=== PATIENT | male | born 1980 | race Caucasian/White ===

== ENCOUNTER 2016-07-21 17:57 | Emergency (ER) | payer MEDICAID, OTHER ==
[2016-07-21 18:04] VITALS: BP 139/78
--- NOTE | 2016-07-21 18:15 | UC ---
Lower Extremity/Ankle HPI - HPI Summary HPI Summary: twisted left ankle three weeks ago has continued pain and swelling - History of Current Complaint Chief Complaint: UCLowerExtremity Stated Complaint: ANKLE INJURY Time Seen by Provider: 07/21/16 18:14 Hx Obtained From: Patient Onset/Duration: Sudden Onset, Lasting Weeks - 3, Still Present Severity Initially: Moderate Severity Currently: Moderate Pain Intensity: 6 Pain Scale Used: 0-10 Numeric Aggravating Factor(s): Standing, Ambulation Alleviating Factor(s): Rest, Elevation Able to Bear Weight: Yes - Allergies/Home Medications Allergies/Adverse Reactions: Allergies Allergy/AdvReac Type Severity Reaction Status Date / Time Uncaria Tomentosa (Cats Claw) Allergy Intermediate Runny Nose Verified 09/15/12 12:41 Home Medications: Home Medications Ibuprofen [Advil] 800 mg PO ONCE 07/21/16 [History Confirmed 07/21/16] PMH/Surg Hx/FS Hx/Imm Hx Previously Healthy: No Respiratory History: Asthma - Surgical History Surgical History: Yes Surgery Procedure, Year, and Place: Bilateral knee surgery, torn meniscus, and bone fragments. 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 Lives: With Family Alcohol Use: Daily Substance Use Type: None Smoking Status (MU): Never Smoked Tobacco Review of Systems Constitutional: Negative Skin: Negative Eyes: Negative ENT: Negative Respiratory: Negative Cardiovascular: Negative Gastrointestinal: Negative Genitourinary: Negative Motor: Negative Neurovascular: Negative Musculoskeletal: Arthralgia - lateral left ankle pain Neurological: Negative Psychological: Negative All Other Systems Reviewed And Are Negative: Yes Physical Exam Triage Information Reviewed: Yes Appearance: Well-Appearing, No Pain Distress, Obese Vital Signs: Initial Vital Signs Temp 97.6 F 07/21/16 18:01 Pulse 80 07/21/16 18:01 Resp 18 07/21/16 18:01 BP 139/78 07/21/16 18:01 Pulse Ox 96 07/21/16 18:01 Vital Signs Reviewed: Yes Eye Exam: Normal Eyes: Positive: Conjunctiva Clear ENT Exam: Normal ENT: Positive: Normal ENT inspection, Hearing grossly normal. Negative: Nasal congestion, Nasal drainage, Trismus, Muffled/hoarse voice Dental Exam: Normal Neck exam: Normal Neck: Positive: Supple, Nontender Respiratory Exam: Normal Respiratory: Positive: Chest non-tender, Lungs clear, Normal breath sounds, No respiratory distress, No accessory muscle use Cardiovascular Exam: Normal Cardiovascular: Positive: RRR, No Murmur, Pulses Normal, Brisk Capillary Refill Musculoskeletal Exam: Normal Musculoskeletal: Positive: Strength Intact, ROM Intact, Edema @ - left lateral pain Neurological Exam: Normal Neurological: Positive: Alert, Muscle Tone Normal Psychological Exam: Normal Psychological: Positive: Normal Response To Family, Age Appropriate Behavior Skin Exam: Normal Diagnostics - Radiology No standard instances Xray Interpretation: No Acute Changes Radiology Interpretation Completed By: Radiologist Lower Extremity Course/Dx - Course Course Of Treatment: rice, prashanth, gel, ibuprofen, follow with ortho 1 week - Differential Dx/Diagnosis Differential Diagnosis/HQI/PQRI: Contusion, Fracture (Closed), Sprain, Strain Provider Diagnoses: left ankle sprain Discharge - Discharge Plan Condition: Stable Disposition: HOME Patient Education Materials: Ankle Sprain (ED), Ankle Stirrup Splint (ED), RICE Therapy (ED), Ibuprofen (By mouth) Referrals: No Primary Care Phys,NOPCP [Primary Care Provider] - Maxwell Bland MD [Medical Doctor] - 5 Days
--- NOTE | 2016-07-21 18:49 | RAD ---
INDICATION: Left ankle injury. TECHNIQUE: 3 views of the left ankle were obtained. FINDINGS: There is diffuse soft tissue swelling. The bones are in normal alignment. No fracture is seen. Joint spaces appear maintained. IMPRESSION: SOFT TISSUE SWELLING, NO FRACTURE IS SEEN.
== END 2016-07-21 19:05 | disposition home or self-care (01) ==
LOC: UCEAST 17:57
DX: S93.402A Sprain of unspecified ligament of left ankle, initial encounter (principal); X50.1XXA Overexertion from prolonged static or awkward postures, initial encounter; J45.909 Unspecified asthma, uncomplicated
CPT/HCPCS: 99211; G0463

== ENCOUNTER 2017-10-08 10:28 | Emergency (ER) | payer OTHER ==
[2017-10-08 10:57] VITALS: BP 145/91
[2017-10-08] MEDS ORDERED: Lidocaine 2% VISCOUS* 15 ML UDC SWISH SPIT ONE (11:11)
--- NOTE | 2017-10-08 11:11 | UC ---
Dental HPI - HPI Summary HPI Summary: 36 y/o male presents to the urgent c/o left lower jaw toothache w/ swelling since yesterday. Pt reports he has a fracture molar w/swelling and redness around molar. Pain is 3/10 when eating. Pt has not taking any medications to alleviate symptoms. Pt denies fever, trismus, SOB, URI, chest pain, abdominal pain, N/V/D. Pt has a Dentist , but haven't been able to make an soon appt. - History of Current Complaint Chief Complaint: UCDentalProblem Stated Complaint: DENTAL PAIN Time Seen by Provider: 10/08/17 10:54 Hx Obtained From: Patient Onset/Duration: Gradual Onset, Lasting Days - 1 day, Still Present, Worse Since - today Severity: Moderate Pain Intensity: 3 Pain Scale Used: 0-10 Numeric Aggravating Factor(s): Chewing, Other - eating - Allergies/Home Medications Allergies/Adverse Reactions: Allergies Allergy/AdvReac Type Severity Reaction Status Date / Time pet dander Allergy Runny Nose Uncoded 10/08/17 10:58 PMH/Surg Hx/FS Hx/Imm Hx Previously Healthy: Yes Respiratory History: Asthma - Surgical History Surgical History: Yes Surgery Procedure, Year, and Place: Bilateral knee surgery, torn meniscus, and bone fragments. - Family History Known Family History: Positive: Cardiac Disease - Social History Occupation: Employed Full-time Lives: With Family Alcohol Use: Daily Substance Use Type: None Smoking Status (MU): Never Smoked Tobacco Review of Systems Constitutional: Negative Skin: Negative Eyes: Negative ENT: Dental Pain - left lower jaw pain w/ swelling and redness Respiratory: Negative Cardiovascular: Negative Gastrointestinal: Negative Genitourinary: Negative Motor: Negative Neurovascular: Negative Musculoskeletal: Negative Neurological: Negative Psychological: Negative Is Patient Immunocompromised?: No All Other Systems Reviewed And Are Negative: Yes Physical Exam - Summary Physical Exam Summary: Vital Signs Reviewed: Yes General: Well-Appearing, No Pain Distress, Well-Nourished obese male Eyes: Positive: Conjunctiva Clear - PERRLA, EOMI, ENT: Positive: Normal ENT inspection, Hearing grossly normal, Pharynx normal, TMs normal - B/L external ear canals clear,. Negative: Tonsillar swelling, Tonsillar exudate, Trismus Dental: Positive: Gross Decay/Caries w/ fracture molars #19 and 20 , Abscess @ - gingival swelling and erythema, tender to percussion around same molars, B/L anterior Cervical Lymphadenopathy palpated. Neck: Positive: Supple Respiratory: Positive: Chest non-tender, Lungs clear, Normal breath sounds, No respiratory distress Cardiovascular: Positive: RRR, No Murmur, Pulses Normal, Brisk Capillary Refill Abdomen Description: Positive: Nontender, No Organomegaly, Soft. Negative: CVA Tenderness (R), CVA Tenderness (L) Bowel Sounds: Positive: Present Musculoskeletal: Positive: Strength Intact, ROM Intact, No Edema Neurological Exam: Normal Psychological Exam: Normal Skin Exam: Normal Triage Information Reviewed: Yes Vital Signs: Initial Vital Signs Temp 97.6 F 10/08/17 10:42 Pulse 65 10/08/17 10:42 Resp 16 10/08/17 10:42 BP 145/91 10/08/17 10:42 Pulse Ox 97 10/08/17 10:42 Dental Complaint Course/Dx - Course Course Of Treatment: 36 y/o male presents to the urgent c/o left lower jaw toothache w/ swelling since yesterday. Pt reports he has a fracture molar w/ swelling and redness around molar. Pain is 3/10 when eating. Pt has not taking any medications to alleviate symptoms. Pt denies fever, trismus, SOB, URI, chest pain, abdominal pain, N/V/D. Pt has a Dentist , but haven't been able to make an soon appt. Hx obtained. Pt w/ a fracture moldar and mild sorrounding dental abscess on molar 19 and 20 on examination. Pt given viscous Lidocaine at the clinic to alleviate symptoms. Pt Rx Amoxicillin PO and Ibuprofen PO for pain. Pt strongly advised to f/u with Dentist as soon as possible further evaluation and treatment. Pt's BP is elevated today advised to decrease salt in diet, monitor BP and f/u with PCP for further management. D/c instructions explained. Pt understood and agreed with plan of care. Left the clinic ambulating. - Differential Dx/Diagnosis Differential Diagnosis/Dx: Dental Abscess, Dental Caries, Odontogenic Pain, Peridontic Disease, Peritonsillar Abcess Provider Diagnoses: 1- Acute dental abscess aroun molar 19 and 20. 2- Elevated BP w/o Hx of HTN Discharge - Sign-Out/Discharge Documenting (check all that apply): Patient Departure All imaging exams completed and their final reports reviewed: No Studies - Discharge Plan Condition: Stable Disposition: HOME Prescriptions: Amoxicillin PO (*) [Amoxicillin 500 MG CAP*] 500 mg PO Q12H #20 cap Ibuprofen TAB* [Motrin TAB* 800 MG] 800 mg PO Q6H PRN #30 tab PRN Reason: Pain Patient Education Materials: Dental Abscess (ED), Low-Sodium Diet (ED) Referrals: [facility] [place] [facility] [Outside] - 3 Days Additional Instructions: 1-Please take full course of antibiotic to avoid resistance. Take Yogurt w/ probiotics or Culturelle to protect your GI system 2- Take Ibuprofen PO q6-8hra prn after meals as instructed after meals to alleviate pain and swelling. 3- F/u with your Dentist or Dental List provided as soon as possible for further treatment. 4- If symptoms do not improve or worsen please return to the urgent care or f/u with your PCP 3 days for further evaluation and treatment 5-Your BP is elevated today. please decrease salt in your diet, monitor BP and if it continues to be elevated please f/u with your PCP for further management - Billing Disposition and Condition Condition: STABLE Disposition: Home
== END 2017-10-08 11:25 | disposition home or self-care (01) ==
LOC: UCEAST 10:28
DX: Z91.09 Other allergy status, other than to drugs and biological substances (principal); J45.909 Unspecified asthma, uncomplicated; K04.7 Periapical abscess without sinus; R03.0 Elevated blood-pressure reading, without diagnosis of hypertension
CPT/HCPCS: 99212; G0463

== ENCOUNTER 2018-06-13 07:06 | Emergency (ER) | payer OTHER ==
[2018-06-13 07:15] VITALS: BP 144/88
--- NOTE | 2018-06-13 07:26 | UC ---
Throat Pain/Nasal Zoltan HPI - HPI Summary HPI Summary: 37-year-old male comes to clinic with a chief complaint of sore throat 2 days. Hurts worse when he swallows. His daughter has a diagnosis of strep pharyngitis. No recent fevers no complaint of runny nose or ear pain or shortness of breath. He did try some Tylenol which helped a little bit with the pain.. - History of Current Complaint Chief Complaint: UCRespiratory Stated Complaint: SORE THROAT Time Seen by Provider: 06/13/18 07:18 Pain Intensity: 5 - Allergies/Home Medications Allergies/Adverse Reactions: Allergies Allergy/AdvReac Type Severity Reaction Status Date / Time pet dander Allergy Runny Nose Uncoded 06/13/18 07:15 PMH/Surg Hx/FS Hx/Imm Hx Previously Healthy: Yes Respiratory History: Asthma - Surgical History Surgical History: Yes Surgery Procedure, Year, and Place: Bilateral knee surgery, torn meniscus, and bone fragments. - Family History Known Family History: Positive: Cardiac Disease - Social History Alcohol Use: Daily Substance Use Type: None Smoking Status (MU): Never Smoked Tobacco Review of Systems All Other Systems Reviewed And Are Negative: Yes Constitutional: Positive: Negative Skin: Positive: Negative Eyes: Positive: Negative ENT: Positive: Sore Throat Respiratory: Positive: Negative Cardiovascular: Positive: Negative Gastrointestinal: Positive: Negative Motor: Positive: Negative Neurovascular: Positive: Negative Musculoskeletal: Positive: Negative Neurological: Positive: Negative Psychological: Positive: Negative Is Patient Immunocompromised?: No Physical Exam Triage Information Reviewed: Yes Appearance: No Pain Distress, Well-Nourished, Ill-Appearing - MILD Vital Signs: Initial Vital Signs Temp 97.8 F 06/13/18 07:11 Pulse 78 06/13/18 07:11 Resp 16 06/13/18 07:11 BP 144/88 06/13/18 07:11 Pulse Ox 97 06/13/18 07:11 Vital Signs Reviewed: Yes Eye Exam: Normal Eyes: Positive: Conjunctiva Clear ENT: Positive: Pharyngeal erythema, TMs normal Neck exam: Normal Neck: Positive: Supple Respiratory: Positive: Lungs clear, Normal breath sounds, No respiratory distress Cardiovascular: Positive: RRR Musculoskeletal Exam: Normal Musculoskeletal: Positive: Strength Intact, ROM Intact Neurological Exam: Normal Neurological: Positive: Alert Psychological Exam: Normal Psychological: Positive: Age Appropriate Behavior Skin Exam: Normal Throat Pain/Nasal Course/Dx - Course Course Of Treatment: DISCUSSED VIRAL VERSES BACTERIAL INFECTION AND THE ROLE OF ANTIBIOTICS. THE PATIENT PREFERS TO BE ON ANTIBIOTICS AT THIS TIME. - Differential Dx/Diagnosis Provider Diagnosis: Pharyngitis Discharge - Sign-Out/Discharge Documenting (check all that apply): Patient Departure All imaging exams completed and their final reports reviewed: No Studies - Discharge Plan Condition: Stable Disposition: HOME Prescriptions: Amoxicillin PO (*) [Amoxicillin 875 MG (*)] 875 mg PO BID #20 tab Patient Education Materials: Pharyngitis (ED) Forms: *Work Release Referrals: [facility] [place] [facility] [Outside] Additional Instructions: FOLLOW UP WITH YOUR DOCTOR IF NOT COMPLETELY IMPROVED. GET REEVALUATED SOONER IF YOUR CONDITION WORSENS OR ANY QUESTIONS OR CONCERNS. - Billing Disposition and Condition Condition: STABLE Disposition: Home
== END 2018-06-13 07:29 | disposition home or self-care (01) ==
LOC: UCEAST 07:06
DX: J02.9 Acute pharyngitis, unspecified (principal); J45.909 Unspecified asthma, uncomplicated
CPT/HCPCS: 99212; G0463

== ENCOUNTER 2019-03-25 13:30 | Emergency (ER) | payer OTHER ==
[2019-03-25 14:16] VITALS: BP 159/97
--- NOTE | 2019-03-25 14:37 | UC ---
Respiratory Complaint HPI - HPI Summary HPI Summary: PT presents to reporting 5 days of progressive cough with now green sputum. No SOB + wheeze - using old inhaler with improvement. No fever, chills, rash. 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, no tobacco, no vape not immunocompromised Pt's medications as entered in the EMR by consulting systems engineer reviewed this visit - History of Current Complaint Chief Complaint: UCGeneralIllness Stated Complaint: COUGH Time Seen by Provider: 03/25/19 14:32 Hx Obtained From: Patient Severity Currently: None Pain Intensity: 0 Pain Scale Used: 0-10 Numeric Character: Cough: Productive - green sputum - Allergies/Home Medications Allergies/Adverse Reactions: Allergies Allergy/AdvReac Type Severity Reaction Status Date / Time pet dander Allergy Runny Nose Uncoded 03/25/19 14:17 PMH/Surg Hx/FS Hx/Imm Hx Previously Healthy: Yes - Surgical History Surgical History: Yes Surgery Procedure, Year, and Place: Bilateral knee surgery, torn meniscus, and bone fragments. - Family History Known Family History: Positive: Cardiac Disease, Non-Contributory - Social History Occupation: Employed Full-time Lives: With Family Alcohol Use: Daily Substance Use Type: None Smoking Status (MU): Never Smoked Tobacco Review of Systems All Other Systems Reviewed And Are Negative: Yes Constitutional: Positive: Fatigue Eyes: Positive: Negative ENT: Positive: Negative Respiratory: Positive: Cough Cardiovascular: Positive: Negative Gastrointestinal: Positive: Negative Genitourinary: Positive: Negative Physical Exam - Summary Physical Exam Summary: Vital Signs Reviewed: Yes A+Ox3, no distress, mild intermittent cough Eyes: Conjunctiva Clear, MLA. EOM intact and full Neck: Positive: Supple, No LA ENT: Hearing grossly normal TM x 2 clear, mmoist, uvula midline, no exudate, mild erythema Respiratory: Positive: no resp distress, no accessory muscle use + intermittent cough scattered wheeze, increased right base, expiratory Cardiovascular: RRR nl s1, s2 no m/r CBT <2 sec abd soft obese + BS Musculoskeletal Exam: LU x 4 without difficulty Strength Intact, ROM Intact Neurological: Positive: Alert, + sensation throughout Psychological: Positive: Normal Response To assistant property manager Skin: Positive: no rash, no ecchymosis Triage Information Reviewed: Yes Vital Signs: Initial Vital Signs Temp 99.4 F 03/25/19 14:13 Pulse 102 03/25/19 14:13 Resp 18 03/25/19 14:13 BP 159/97 03/25/19 14:13 Pulse Ox 96 03/25/19 14:13 Respiratory Course/Dx - Course Course Of Treatment: Patient's a 38-year-old gentleman presents to urgent care reporting 5 days of progressive cough congestion in his chest with green sputum. No fevers chills. No shortness of breath. 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 Patient without any body aches had congestion postnasal drip. On exam vital signs are stable. Patient is well-appearing with a course of cough. Patient does scattered diffuse wheezes. Discussed with patient concern for increasing recently . Recommend patient have a chest x-ray. Patient declined at this time. We'll treat with antibiotics and MDI. Strict return precautions reviewed. Patient states any agreement with plan. Patient given work note for today and tomorrow. Patient also given physician referral information. - Differential Dx/Diagnosis Provider Diagnosis: Acute bronchitis Discharge ED - Sign-Out/Discharge Documenting (check all that apply): Patient Departure All imaging exams completed and their final reports reviewed: No Studies - Discharge Plan Condition: Stable Disposition: HOME Prescriptions: Albuterol HFA INHALER* [Ventolin HFA Inhaler*] 2 puff INH Q4H PRN #1 mdi PRN Reason: wheeze Amoxicillin/Clavulanate TAB* [Augmentin TAB 875*] 875 mg PO BID #20 tab Patient Education Materials: Acute Bronchitis (ED) Forms: *Gen. Provider Communication, *Work Release Referrals: [facility] [place] [facility] [Outside] No Primary Care Phys,NOPCP [Primary Care Provider] - Additional Instructions: - Take antibiotics exactly as prescribed until gone - Use your albuterol puffer - 2 puffs every 4 hours for the next 2 days - then as needed - Stay well hydrated - avoid excess caffeine and all alcohol - Eat regular, healthy meals - Humidify the air in the room where you sleep - boil water, run a hot steam shower, vaporizer, cups of water by heat register - Okay to take over the counter decongestant and cough medication - These infections are spread by secretions - do NOT share eating or drinking utensils - clean items you share with other people such as cell phones, computer mouse, TV remote, computer tablets,etc.. Once you have been antibiotics for 2 days, change your toothbrush and your pillowcase. -Contact your doctor to arrange a follow-up appointment this week if your symptoms worsen of you have any other questions or concerns - Billing Disposition and Condition Condition: STABLE Disposition: Home
== END 2019-03-25 15:02 | disposition home or self-care (01) ==
LOC: UCEAST 13:30
DX: J20.9 Acute bronchitis, unspecified (principal); Z91.09 Other allergy status, other than to drugs and biological substances
CPT/HCPCS: 99212; G0463

== ENCOUNTER 2019-04-11 07:55 | Emergency (ER) | payer OTHER ==
[2019-04-11 08:11] VITALS: BP 139/78
--- NOTE | 2019-04-11 09:03 | UC ---
Respiratory Complaint HPI - HPI Summary HPI Summary: PATIENT SEEN HERE 2-1/2 WEEKS AGO ON 03/25/2019 AND DIAGNOSED WITH BRONCHITIS. TREATED WITH 10 DAYS OF AUGMENTIN. STATES HE IS FEELING BETTER BUT HAS PERSISTENT COUGH. HAS SOME RIGHT-SIDED PLEURITIC PAIN INTERMITTENTLY. HAS OCCASIONAL WHEEZINESS AND USES ALBUTEROL NEBULIZER AT HOME WHICH HAS BEEN HELPING. NO FEVER OR RHINITIS. NON SMOKER. HAS H/O ASTHMA. - History of Current Complaint Chief Complaint: UCRespiratory Stated Complaint: COUGH,CHEST CONGESTION Time Seen by Provider: 04/11/19 08:22 Hx Obtained From: Patient Onset/Duration: Gradual Onset, Lasting Weeks, Still Present - BUT BETTER Severity Initially: Mild Severity Currently: Mild Pain Intensity: 0 Pain Scale Used: 0-10 Numeric Character: Cough: Nonproductive Aggravating Factors: Exertion, Deep Breaths Alleviating Factors: Nothing Associated Signs And Symptoms: Positive: Wheezing. Negative: Fever - Allergies/Home Medications Allergies/Adverse Reactions: Allergies Allergy/AdvReac Type Severity Reaction Status Date / Time pet dander Allergy Runny Nose Uncoded 04/11/19 08:08 Home Medications: Home Medications Albuterol HFA INHALER* [Ventolin HFA Inhaler*] 2 puff INH Q4H PRN #1 mdi [Rx Confirmed 04/11/19] predniSONE 50 mg TAB [Deltasone 50 mg TAB] 50 mg PO DAILY #5 tab 04/11/19 [Rx] PMH/Surg Hx/FS Hx/Imm Hx Respiratory History: Asthma - Surgical History Surgical History: Yes Surgery Procedure, Year, and Place: Bilateral knee surgery, torn meniscus, and bone fragments. - Family History Known Family History: Positive: Cardiac Disease, Non-Contributory - Social History Alcohol Use: Daily Alcohol Amount: 6 pack/day Substance Use Type: None Smoking Status (MU): Never Smoked Tobacco Review of Systems All Other Systems Reviewed And Are Negative: Yes Constitutional: Positive: Fatigue ENT: Positive: Negative Respiratory: Positive: Cough Cardiovascular: Positive: Negative Gastrointestinal: Positive: Negative Physical Exam Triage Information Reviewed: Yes Appearance: Well-Appearing, No Pain Distress, Well-Nourished Vital Signs: Initial Vital Signs Temp 98.6 F 04/11/19 08:06 Pulse 80 04/11/19 08:06 Resp 18 04/11/19 08:06 BP 139/78 04/11/19 08:06 Pulse Ox 94 04/11/19 08:06 Vital Signs Reviewed: Yes Eyes: Positive: Conjunctiva Clear ENT: Positive: Hearing grossly normal Neck: Positive: Supple Respiratory Exam: Normal Cardiovascular Exam: Normal Abdomen Description: Positive: Soft Musculoskeletal: Positive: No Edema Neurological: Positive: Alert Psychological: Positive: Age Appropriate Behavior Skin: Negative: Rashes Diagnostics - Radiology CXR Radiology Interpretation Completed By: Radiologist Summary of Radiographic Findings: No evidence for pneumonia. Negative for visible rib fracture or pneumothorax. Negative exam. Respiratory Course/Dx - Course Course Of Treatment: CHEST X-RAY TODAY UNREMARKABLE. REPEAT O2 SAT 97%. PATIENT LIKELY WITH ACUTE BRONCHITIS/ASTHMA EXACERBATION TRIGGERED BY HIS RECENT RESPIRATORY INFECTION. NO INDICATION FOR ANY MORE ANTIBIOTICS TODAY. WILL TREAT WITH A SHORT BURST OF PREDNISONE TO HELP WITH AIRWAY INFLAMMATION. PATIENT ALREADY HAS AN ALBUTEROL NEBULIZER AT HOME WHICH HE CAN USE. PT DECLINES BREATHING TREATMENT HERE IN THE UC. SEEK FOLLOW-UP IF NOT IMPROVING EXPECTED. - Differential Dx/Diagnosis Provider Diagnosis: Acute bronchitis Discharge ED - Sign-Out/Discharge Documenting (check all that apply): Patient Departure All imaging exams completed and their final reports reviewed: Yes - Discharge Plan Condition: Stable Disposition: HOME Prescriptions: predniSONE 50 mg TAB [Deltasone 50 mg TAB] 50 mg PO DAILY #5 tab Patient Education Materials: Acute Bronchitis (ED) Referrals: [facility] [Outside] - If Needed Additional Instructions: CHEST X-RAY TODAY UNREMARKABLE. YOUR PERSISTENT COUGH IS LIKELY DUE TO AIRWAY INFLAMMATION FROM YOUR RECENT RESPIRATORY INFECTION AND SHOULD CALM DOWN WITH TIME. YOU ALSO MAY BE EXPERIENCING AN ASTHMA EXACERBATION TRIGGERED BY YOUR RECENT RESPIRATORY INFECTION. WILL TREAT WITH PREDNISONE TO HELP WITH AIRWAY INFLAMMATION. REST, HYDRATE. USE YOUR NEBULIZER AT HOME PRESCRIBED. FOLLOW-UP IF NOT IMPROVING EXPECTED OVER THE NEXT WEEK OR SO. CALL THE NUMBER BELOW FOR ASSISTANCE IN ESTABLISHING WITH A PCP An additional resource available to assist in finding the appropriate physician for your health care needs is the [facility] ([facility]). You may contact them by calling [phone]. - Billing Disposition and Condition Condition: STABLE Disposition: Home
== END 2019-04-11 09:53 | disposition home or self-care (01) ==
LOC: UCEAST 07:55
DX: J20.9 Acute bronchitis, unspecified (principal); J45.909 Unspecified asthma, uncomplicated; Z91.09 Other allergy status, other than to drugs and biological substances
CPT/HCPCS: 71046; 99212; G0463